=== PATIENT | male | born 1975 | race Two or more races ===

== ENCOUNTER 2017-04-07 21:04 | Inpatient (IN) | payer MEDICAID ==
[~2017-04-07] VITALS: Ht 172.7 cm; Wt 90.5 kg
[2017-04-07] MEDS ORDERED: ACETAMINOPHEN 325 MG TAB PO ONE ×2 (21:19→21:30)
[2017-04-07] MEDS ORDERED: SODIUM CHLORIDE 0.9% 1,000 ML IV ONE (21:30)
[2017-04-07 21:58] LABS: Basophils # (auto) 0 uL; Basophils % (auto) 0.5 % (0.0-2.0); Eosinophils # (auto) 0 uL; Eosinophils % (auto) 0.5 % (0.0-7.0); Hematocrit 35.3 % (41.0-53.0); Hemoglobin 11.9 g/dL (13.5-17.5); Lymphocytes # (auto) 0.8 uL; Lymphocytes % (auto) 9.1 % (10.0-50.0); Mean Corpuscular Hemoglobin 28.8 pg (28.0-32.0); Mean Corpuscular Hgb Conc. 33.8 g/dL (32.0-36.0); Mean Corpuscular Volume 85.2 fL (80.0-100.0); Monocytes # (auto) 0.4 uL; Monocytes % (auto) 4.4 % (0.0-12.0); Neutrophils # (auto) 7.6 uL; Neutrophils % (auto) 85.5 % (37.0-80.0); Platelet Count (auto) 206 10^3/uL (140-450); Red Blood Cells 4.14 10^6/uL (4.5-5.90); White Blood Cell 8.8 10^3/uL (4.4-10.8)
[2017-04-07 22:19] LABS: INR 1.28 (0.9-1.15); Partial Thromboplastin Time 29.2 sec (22.64-33.71)
[2017-04-07 22:28] LABS: Alanine Aminotransferase 23 U/L (16-61); Albumin 2.8 g/dL (3.4-5.0); Anion Gap 9 (5-15); Aspartate Aminotransferase 16 U/L (15-37); BUN/Creatinine Ratio 16.4; Blood Urea Nitrogen 19 mg/dL (7-18); Calcium 7.6 mg/dL (8.5-10.1); Carbon Dioxide 22 mmol/L (21-32); Chloride 107 mmol/L (98-107); GFR African American 89 mL/min; GFR Non-African American 74 mL/min; Glucose 124 mg/dL (74-106); Potassium 4.2 mmol/L (3.5-5.1); Sodium 138 mmol/L (136-145)
[2017-04-07 22:33] LABS: Alkaline Phosphatase 98 U/L (45-117); Bilirubin, Total 0.5 mg/dL (0.2-1.0)
[2017-04-07 22:36] LABS: Urine Bacteria MOD /hpf (None Seen); Urine Blood 1+ /uL (Negative); Urine Mucus FEW (None Seen); Urine Specific Gravity 1.021 (1.001-1.035); Urine WBC 548 /hpf (0 - 3); Urine WBC Clumps PRESENT /hpf (None Seen)
[2017-04-07] MEDS ORDERED: cefTRIAXone 1GM/10ml IVPUSH 10 ML IV ONE (22:45)
[2017-04-08] MEDS ORDERED: HYDROcodone-ACET 5/325MG TAB PO PRN (05:15)
[2017-04-08] MEDS ORDERED: ONDANSETRON HCL 4 MG/2 ML VIAL IV PRN (05:15)
[2017-04-08] MEDS: SODIUM CHLORIDE 0.9% 1,000 ML IV SCH ×2 (05:30→15:15)
[2017-04-08] MEDS: cefTRIAXone 1GM/10ml IVPUSH 10 ML IV SCH (09:06)
[2017-04-08 09:21] VITALS: BP 95/59
[2017-04-08] MEDS ORDERED: ENOXAPARIN SOD 40 MG/0.4 ML SYRINGE SC SCH (10:00)
[2017-04-08] MEDS: FAMOTIDINE 20 MG TAB PO SCH ×2 (10:01→21:17)
[2017-04-08] MEDS: ACETAMINOPHEN 325 MG TAB PO PRN (12:08)
[2017-04-08 17:16] VITALS: BP 102/56
[2017-04-08] MEDS: TEMAZEPAM 15 MG CAP PO PRN (21:17)
[2017-04-08 22:00] VITALS: BP 133/82
[2017-04-09] MEDS: SODIUM CHLORIDE 0.9% 1,000 ML IV SCH ×3 (01:03→21:33)
[2017-04-09 04:55] VITALS: BP 129/75
[2017-04-09] MEDS: ACETAMINOPHEN 325 MG TAB PO PRN ×2 (05:28→13:23)
[2017-04-09 06:52] LABS: Hemoglobin 11.5 g/dL (13.5-17.5); Mean Corpuscular Hemoglobin 28.7 pg (28.0-32.0); Mean Corpuscular Hgb Conc. 33.8 g/dL (32.0-36.0); Mean Corpuscular Volume 84.8 fL (80.0-100.0); Platelet Count (auto) 150 10^3/uL (140-450); Red Cell Distribution Width 13.9 % (11.8-14.3); White Blood Cell 7.1 10^3/uL (4.4-10.8)
[2017-04-09 07:04] LABS: Band Neutrophils % (manual) 0; Basophils % (manual) 0 (0.0-2.0); Blast Cells 0; Eosinophils % (manual) 0 (0-7); Metamyelocytes % 0; Myelocytes % 0; Promyelocytes % 0; Reactive Lymphocytes 0
[2017-04-09 07:16] LABS: Albumin 2.7 g/dL (3.4-5.0); BUN/Creatinine Ratio 11.8; Bilirubin, Total 0.4 mg/dL (0.2-1.0); Calcium 8.5 mg/dL (8.5-10.1); Potassium 3.8 mmol/L (3.5-5.1); Total Protein 7.2 g/dL (6.4-8.2)
[2017-04-09 07:17] LABS: INR 1.18 (0.9-1.15); Partial Thromboplastin Time 30.3 sec (22.64-33.71); Prothrombin Time 12.9 sec (9.37-12.3)
[2017-04-09 09:00] VITALS: BP 126/76
[2017-04-09] MEDS ORDERED: IOHEXOL 300 MG/ML 100ML BOTTLE IJ ONE (10:35)
[2017-04-09] MEDS ORDERED: MIDAZOLAM HCL 1MG/1ML-2 ML VIAL ONE (11:15)
[2017-04-09] MEDS ORDERED: fentaNYL CITRATE 100 MCG/2 ML VL ONE (11:15)
[2017-04-09] MEDS ORDERED: LIDOCAINE 2%HCL (LOCAL ANESTH.) INJ 20ML MDV ONE (11:41)
[2017-04-09] MEDS: cefTRIAXone 1GM/10ml IVPUSH 10 ML IV SCH (12:40)
[2017-04-09] MEDS: FAMOTIDINE 20 MG TAB PO SCH ×2 (12:40→21:33)
[2017-04-09 13:20] VITALS: BP 114/72
[2017-04-09 13:58] LABS: Lymphocytes % (manual) 16 (10.0-50.0); Monocytes % (manual) 11 (0-12)
[2017-04-09 17:00] VITALS: BP 121/70
[2017-04-09 21:27] VITALS: BP 130/77
[2017-04-09] MEDS: TEMAZEPAM 15 MG CAP PO PRN (22:22)
[2017-04-10] MEDS: SODIUM CHLORIDE 0.9% 1,000 ML IV SCH (04:34)
[2017-04-10] MEDS: ACETAMINOPHEN 325 MG TAB PO PRN ×2 (04:35→12:00)
[2017-04-10 05:00] VITALS: BP 120/86
[2017-04-10 08:00] VITALS: BP 127/85
[2017-04-10 09:00] VITALS: BP 127/85
[2017-04-10] MEDS: FAMOTIDINE 20 MG TAB PO SCH ×2 (10:29→22:05)
[2017-04-10] MEDS: cefTRIAXone 1GM/10ml IVPUSH 10 ML IV SCH (10:29)
[2017-04-10 13:00] VITALS: BP 156/90
[2017-04-10 16:44] VITALS: BP 111/67
[2017-04-10] MEDS: SODIUM CHLOR 0.9% PF (SALINE LOCK) 10ML VIAL IV SCH (20:00)
[2017-04-10 22:00] VITALS: BP 128/83
[2017-04-10] MEDS: TEMAZEPAM 15 MG CAP PO PRN (22:05)
[2017-04-11] VITALS (7 sets, daily range): BP systolic 106–129; BP diastolic 71–86
[2017-04-11] MEDS: ACETAMINOPHEN 325 MG TAB PO PRN ×2 (04:45→22:20)
[2017-04-11 07:15] LABS: Basophils # (auto) 0 uL; Basophils % (auto) 0.5 % (0.0-2.0); Calcium 9.2 mg/dL (8.5-10.1); Eosinophils # (auto) 0 uL; Eosinophils % (auto) 0.1 % (0.0-7.0); Hematocrit 35.9 % (41.0-53.0); Lymphocytes # (auto) 1.3 uL; Lymphocytes % (auto) 18.2 % (10.0-50.0); Mean Corpuscular Hemoglobin 28.5 pg (28.0-32.0); Mean Corpuscular Hgb Conc. 33.5 g/dL (32.0-36.0); Mean Corpuscular Volume 85.2 fL (80.0-100.0); Monocytes # (auto) 0.7 uL; Monocytes % (auto) 10.4 % (0.0-12.0); Neutrophils % (auto) 70.8 % (37.0-80.0); Platelet Count (auto) 278 10^3/uL (140-450); Red Blood Cells 4.21 10^6/uL (4.5-5.90); Red Cell Distribution Width 13.9 % (11.8-14.3); White Blood Cell 7.1 10^3/uL (4.4-10.8)
[2017-04-11 07:17] LABS: BUN/Creatinine Ratio 13.4
[2017-04-11] MEDS: cefTRIAXone 1GM/10ml IVPUSH 10 ML IV SCH (09:00)
[2017-04-11] MEDS: FAMOTIDINE 20 MG TAB PO SCH ×2 (09:43→22:21)
[2017-04-11] MEDS: ERTAPENEM SOD INJ 1 GM in SODIUM CHL 0.9% 50 ML IV SCH (11:08)
[2017-04-11] MEDS ORDERED: LIDOCAINE 1% HCL (LOCAL ANESTH.) INJ 20ML MDV ID ONE (15:45)
[2017-04-11] MEDS ORDERED: AMPI500C8 PO (16:16)
[2017-04-11] MEDS ORDERED: AMPICILLIN 500 MG CAP PO ONE (16:30)
[2017-04-11] MEDS: TEMAZEPAM 15 MG CAP PO PRN (22:21)
[2017-04-12 05:00] VITALS: BP 118/81
[2017-04-12 08:00] VITALS: BP 124/71
[2017-04-12 09:00] VITALS: BP 124/71
[2017-04-12] MEDS: FAMOTIDINE 20 MG TAB PO SCH (09:54)
[2017-04-12] MEDS: ERTAPENEM SOD INJ 1 GM in SODIUM CHL 0.9% 50 ML IV SCH (09:54)
[2017-04-12] MEDS: SODIUM CHLOR 0.9% PF (SALINE LOCK) 10ML VIAL IV SCH (09:54)
[2017-04-12 13:00] VITALS: BP 127/74
[2017-04-12 15:06] VITALS: BP 105/54
== END 2017-04-12 16:05 | disposition home health service (06) | DRG 720 ==
LOC: ER 21:04 → EDBD 21:04 → OVERFLOW 21:05 → WEST WING 04-08 13:17
PROVIDERS: ADMIT Nurse Practitioner; ATTEND Internal Medicine
PROC: 0T25X0Z Change Drainage Device in Kidney, External Approach (ICD-10-PCS; principal; 2017-04-09)
PROC: BT121ZZ Fluoroscopy of Left Kidney using Low Osmolar Contrast (ICD-10-PCS; 2017-04-09)
PROC: 02HV33Z Insertion of Infusion Device into Superior Vena Cava, Percutaneous Approach (ICD-10-PCS; 2017-04-11)
DX: A41.51 Sepsis due to Escherichia coli [E. coli] (principal); E43 Unspecified severe protein-calorie malnutrition; K76.0 Fatty (change of) liver, not elsewhere classified; Z93.6 Other artificial openings of urinary tract status; N13.2 Hydronephrosis with renal and ureteral calculous obstruction; Z96.0 Presence of urogenital implants; G47.00 Insomnia, unspecified; Z16.12 Extended spectrum beta lactamase (ESBL) resistance; N39.0 Urinary tract infection, site not specified; N13.9 Obstructive and reflux uropathy, unspecified; I51.7 Cardiomegaly; B95.2 Enterococcus as the cause of diseases classified elsewhere; Z87.442 Personal history of urinary calculi; Z71.89 Other specified counseling
CPT/HCPCS: 36415; 36569; 50431; 50435; 71045; 74018; 74176; 76000; 76775; 80048; 80053; 81001; 83605; 83735; 84484; 85007; 85025; 85027; 85610; 85730; 87040; 87077; 87086; 87088; 87186; 87804; 93005; 96361; 96374; 96376; C1729; C2625; J1335; J2250